=== PATIENT | male | born 1955 | race African-American/Black ===

== ENCOUNTER → 2021-01-27 | Outpatient (CLI) | payer OTHER ==
[~2021-01-27] MED LIST: IOPAMIDOL 370 MG/ML 200 ML INFUS..BTL INJ ONE; SODIUM CHLORIDE 0.9% 50ML 50 ML ONE
[2021-01-27 08:43] LABS: BLOOD UREA NITROGEN 18 mg/dL (7-26); BUN/CREATININE RATIO 18 (6-25); EST GLOMERULAR FILTRATION RATE > 60 ML/MIN (60-)
== END ==
LOC: CT 07:44
PROVIDERS: ATTEND Urology
DX: C61 Malignant neoplasm of prostate (principal)
CPT/HCPCS: 36415; 74177; 82565; 84520; Q9967

== ENCOUNTER → 2021-02-05 | Outpatient (CLI) | payer OTHER, MEDICARE ==
[~2021-02-05] MED LIST changes: +FENTANYL CITRATE/PF 100MCG/2 ML INJ ONE; -IOPAMIDOL 370 MG/ML 200 ML INFUS..BTL INJ ONE; +MIDAZOLAM HCL 2 MG/2 ML VIAL ONE; -SODIUM CHLORIDE 0.9% 50ML 50 ML ONE
[2021-02-05 08:44] LABS: HEMOGLOBIN 11.1 g/dL (14.0-18.0)
[2021-02-05 09:01] LABS: INR 0.91; PROTHROMBIN TIME 12.8 seconds (11.9-14.5)
[2021-02-05 09:02] LABS: PARTIAL THROMBOPLASTIN TIME 29.1 seconds (23.8-35.5)
== END ==
LOC: CT 07:55
PROVIDERS: ATTEND Urology
DX: C61 Malignant neoplasm of prostate (principal); N28.1 Cyst of kidney, acquired
CPT/HCPCS: 20225; 36415; 77012; 85014; 85049; 85610; 85730; 88305; 88311; J2250; J3010; U0002; 99152; 99153

== ENCOUNTER 2021-05-11 08:00 | Inpatient (IN) | payer OTHER, MEDICARE ==
[2021-05-07 10:27] LABS: BASOPHILS % 0.5 % (0.0-1.0); EOSINOPHILS # (AUTO) 0.1 (0.0-0.4); EOSINOPHILS % 2.6 % (0.0-6.0); HEMATOCRIT 36.9 % (38.2-49.6); LYMPHOCYTES # (AUTO) 1.3 (1.0-3.2); LYMPHOCYTES % 34.4 % (18.0-39.1); MEAN CORPUSCULAR HEMOGLOBIN 30.1 pg (28-32); MEAN CORPUSCULAR HGB CONC 32.5 g/dL (31-35); MEAN CORPUSCULAR VOLUME 92.5 fL (81-99); MONOCYTES # (AUTO) 0.4 (0.2-0.8); NEUTROPHILS % 51.2 % (38.7-80.0); PLATELET COUNT 171 x10e3/uL (140-360); RED BLOOD COUNT 3.99 x10e6/uL (4.3-5.7); RED CELL DISTRIBUTION WIDTH 14.7 % (11.7-14.4)
[2021-05-07 10:52] LABS: ALANINE AMINOTRANSFERASE 38 IU/L (0-55); ALBUMIN 3.6 g/dL (3.5-5.0); ALKALINE PHOSPHATASE 96 IU/L (40-150); ANION GAP 12.1 mmol/L (8-16); BLOOD UREA NITROGEN 20 mg/dL (7-26); BUN/CREATININE RATIO 17 (6-25); CALCIUM 9.2 mg/dL (8.4-10.2); CARBON DIOXIDE 24 mmol/L (22-29); CHLORIDE 111 mmol/L (98-107); EST GLOMERULAR FILTRATION RATE > 60 ML/MIN (60-); GLUCOSE 80 mg/dL (74-118); POTASSIUM 4.1 mmol/L (3.5-5.1); SODIUM 143 mmol/L (136-145)
[~2021-05-11 08:00] MED LIST changes: +BICALUTAMIDE50 MG; +FAMOTIDINE20 MG PO; -FENTANYL CITRATE/PF 100MCG/2 ML INJ ONE; +FLOMAX0.4 MG PO; -MIDAZOLAM HCL 2 MG/2 ML VIAL ONE
[2021-05-11] MEDS ORDERED: MIDAZOLAM HCL 2 MG/2 ML VIAL ONE (10:53)
[2021-05-11] MEDS ORDERED: FENTANYL CITRATE/PF 100MCG/2 ML INJ ONE ×2 (10:53→14:58)
[2021-05-11] MEDS ORDERED: LIDOCAINE HCL 2% LOCAL INJ 5 ML SDV VIAL INJ ONE (12:44)
[2021-05-11] MEDS ORDERED: ONDANSETRON HCL INJ 2MG/ML 2ML 2 MG/ML VIAL ONE (12:44)
[2021-05-11] MEDS ORDERED: NEOSTIGMINE 1 MG/ML 10ML VIAL ONE (12:44)
[2021-05-11] MEDS ORDERED: SEVOFLURANE INHAL SOLN 250 ML PEN BTL ONE (12:44)
[2021-05-11] MEDS ORDERED: GLYCOPYRROLATE INJ 0.2 MG/ML VIAL ONE (12:44)
[2021-05-11] MEDS ORDERED: DEXAMETHASONE SOD PHOS INJ 4 MG/ML VIAL ONE (12:44)
[2021-05-11] MEDS ORDERED: POVIDONE IODINE 0.05% 0.05 % ML PO ONE (12:44)
[2021-05-11] MEDS ORDERED: ROCURONIUM BROMIDE 10 MG/ML 5ML VIAL IV ONE (12:44)
[2021-05-11] MEDS ORDERED: PROPOFOL IV EMULSION 10 MG/ML 20 ML VIAL ONE (12:44)
[2021-05-11] MEDS ORDERED: MORPHINE SULFATE 1 MG/ML 30ML PCA ONE (14:54)
[2021-05-12] MEDS ORDERED: HYDRALAZINE HCL 25 MG TAB PO PRN (12:15)
[2021-05-12] MEDS ORDERED: MAGNESIUM HYDROXIDE 30 ML UDC PO PRN (12:15)
[2021-05-12] MEDS ORDERED: ONDANSETRON HCL INJ 2MG/ML 2ML 2 MG/ML VIAL IV PRN (14:15)
[2021-05-12] MEDS: Cefazolin 1 GM in SODIUM CHLORIDE 0.9% 50ML 50 ML IV SCH ×2 (14:59→21:41)
[2021-05-12] MEDS: GABAPENTIN 100 MG CAP PO SCH ×2 (14:59→21:41)
[2021-05-12] MEDS: D5.45%NS/KCL 20MEQ 1,000 ML IV SCH ×2 (15:00→21:42)
[2021-05-12] MEDS: ACETAMINOPHEN/CODEINE 300MG - 30MG TAB PO PRN ×3 (15:00→22:50)
[2021-05-12 16:18] VITALS: BP 144/81
[2021-05-12] MEDS: FAMOTIDINE 20 MG TAB PO SCH (17:36)
[2021-05-12] MEDS: DOCUSATE SODIUM 100 MG CAP PO SCH (17:36)
[2021-05-12 20:00] VITALS: BP 149/79
[2021-05-12 20:44] VITALS: BP 149/79
[2021-05-12 23:28] VITALS: BP 138/84
[2021-05-13] VITALS (8 sets, daily range): BP systolic 125–151; BP diastolic 78–101
[2021-05-13] MEDS: ACETAMINOPHEN/CODEINE 300MG - 30MG TAB PO PRN ×2 (05:53→10:21)
[2021-05-13] MEDS: Cefazolin 1 GM in SODIUM CHLORIDE 0.9% 50ML 50 ML IV SCH (06:05)
[2021-05-13 06:16] LABS: BASOPHILS % 0.3 % (0.0-1.0); EOSINOPHILS # (AUTO) 0.1 (0.0-0.4); EOSINOPHILS % 0.8 % (0.0-6.0); HEMATOCRIT 37.9 % (38.2-49.6); HEMOGLOBIN 12.4 g/dL (14.0-18.0); LYMPHOCYTES # (AUTO) 1.2 (1.0-3.2); LYMPHOCYTES % 16.2 % (18.0-39.1); MEAN CORPUSCULAR HGB CONC 32.7 g/dL (31-35); MEAN CORPUSCULAR VOLUME 91.5 fL (81-99); MONOCYTES # (AUTO) 0.7 (0.2-0.8); MONOCYTES % 9.4 % (4.4-11.3); NEUTROPHILS # (AUTO) 5.2 (2.1-6.9); PLATELET COUNT 152 x10e3/uL (140-360); RED BLOOD COUNT 4.14 x10e6/uL (4.3-5.7); RED CELL DISTRIBUTION WIDTH 14.2 % (11.7-14.4)
[2021-05-13 06:53] LABS: ANION GAP 12.9 mmol/L (8-16); CALCIUM 8.9 mg/dL (8.4-10.2); CREATININE, SERUM 0.88 mg/dL (0.72-1.25); POTASSIUM 3.9 mmol/L (3.5-5.1)
[2021-05-13] MEDS: BICALUTAMIDE 50 MG TABLET PO SCH (08:39)
[2021-05-13] MEDS: TAMSULOSIN HCL 0.4 MG CAP PO SCH (08:39)
[2021-05-13] MEDS: FAMOTIDINE 20 MG TAB PO SCH ×2 (08:39→16:16)
[2021-05-13] MEDS: DOCUSATE SODIUM 100 MG CAP PO SCH ×2 (08:39→16:16)
[2021-05-13] MEDS: GABAPENTIN 100 MG CAP PO SCH ×3 (08:39→22:00)
[2021-05-13] MEDS ORDERED: FAMOTIDINE 20 MG TAB PO SCH (09:00)
[2021-05-13] MEDS ORDERED: BISACODYL 10 MG SUPP PR PRN (11:45)
[2021-05-13] MEDS ORDERED: BISACODYL 10 MG SUPP PR ONE (12:30)
[2021-05-14 05:09] VITALS: BP 132/82
[2021-05-14 05:58] LABS: BASOPHILS % 0.2 % (0.0-1.0); EOSINOPHILS # (AUTO) 0.1 (0.0-0.4); EOSINOPHILS % 1.4 % (0.0-6.0); HEMATOCRIT 37.1 % (38.2-49.6); HEMOGLOBIN 12.1 g/dL (14.0-18.0); LYMPHOCYTES # (AUTO) 1.1 (1.0-3.2); LYMPHOCYTES % 18.7 % (18.0-39.1); MEAN CORPUSCULAR HEMOGLOBIN 29.3 pg (28-32); MEAN CORPUSCULAR HGB CONC 32.6 g/dL (31-35); MEAN CORPUSCULAR VOLUME 89.8 fL (81-99); MONOCYTES # (AUTO) 0.6 (0.2-0.8); MONOCYTES % 10.6 % (4.4-11.3); NEUTROPHILS # (AUTO) 3.9 (2.1-6.9); NEUTROPHILS % 68.9 % (38.7-80.0); PLATELET COUNT 184 x10e3/uL (140-360); RED BLOOD COUNT 4.13 x10e6/uL (4.3-5.7); RED CELL DISTRIBUTION WIDTH 14.1 % (11.7-14.4)
[2021-05-14] MEDS: ACETAMINOPHEN/CODEINE 300MG - 30MG TAB PO PRN (06:11)
[2021-05-14 06:31] LABS: ANION GAP 11.9 mmol/L (8-16); CALCIUM 9.3 mg/dL (8.4-10.2); CREATININE, SERUM 0.81 mg/dL (0.72-1.25); POTASSIUM 3.9 mmol/L (3.5-5.1)
[2021-05-14] MEDS: FAMOTIDINE 20 MG TAB PO SCH (07:26)
[2021-05-14 08:00] VITALS: BP 136/93
[2021-05-14] MEDS: GABAPENTIN 100 MG CAP PO SCH (08:07)
[2021-05-14] MEDS: TAMSULOSIN HCL 0.4 MG CAP PO SCH (08:07)
[2021-05-14] MEDS: BICALUTAMIDE 50 MG TABLET PO SCH (08:07)
[2021-05-14] MEDS: DOCUSATE SODIUM 100 MG CAP PO SCH (08:07)
== END 2021-05-14 10:10 | disposition home or self-care (01) | DRG 715 ==
LOC: OR 08:00 → MED/SURG 14:30
PROVIDERS: ADMIT Internal Medicine; ATTEND Internal Medicine
PROC: 0TJB8ZZ Inspection of Bladder, Via Natural or Artificial Opening Endoscopic (ICD-10-PCS; 2021-05-11)
PROC: 07BC0ZX Excision of Pelvis Lymphatic, Open Approach, Diagnostic (ICD-10-PCS; principal; 2021-05-11 13:00)
DX: C61 Malignant neoplasm of prostate (principal); N39.0 Urinary tract infection, site not specified; C77.5 Secondary and unspecified malignant neoplasm of intrapelvic lymph nodes; N40.1 Benign prostatic hyperplasia with lower urinary tract symptoms; R35.1 Nocturia; R39.15 Urgency of urination; N40.3 Nodular prostate with lower urinary tract symptoms; Z80.42 Family history of malignant neoplasm of prostate; N20.0 Calculus of kidney; N50.0 Atrophy of testis; N28.1 Cyst of kidney, acquired; F17.200 Nicotine dependence, unspecified, uncomplicated
CPT/HCPCS: 36415; 71046; 80048; 80053; 85025; 86850; 86900; 88304; 88307; 88342; 93005; J0690; J1100; J2001; J2250; J2270; J2405; J2710; J3010